=== PATIENT | female | born 1965 | race American Indian/Alaskan Native ===

== ENCOUNTER 2019-06-11 14:55 | Emergency (ER) | payer MEDICARE, MEDICAID ==
[~2019-06-11] VITALS: Ht 167.6 cm; Wt 84.8 kg
[~2019-06-11 14:55] MED LIST: [UNRECOGNIZED DRUG - OTHER]
[2019-06-11] MEDS ORDERED: HYDROCODONE/APAP 10-325 MG TABLET PO ONE (15:30)
--- NOTE | 2019-06-11 15:35 | NUR ---
patient was seen by . DC, rx (including precautions) AND FOLLOW UP INSTRUCTIONS GIVEN AND EXPLAINED TO PATIENT WHO STATES SHE UNDERSTANDS ALL INSTRUCTIONS.
== END 2019-06-11 15:37 | disposition home or self-care (01) ==
LOC: ER 14:55
DX: S22.31XA Fracture of one rib, right side, initial encounter for closed fracture (principal); F31.9 Bipolar disorder, unspecified; Z88.1 Allergy status to other antibiotic agents; X58.XXXA Exposure to other specified factors, initial encounter; Y93.89 Activity, other specified; Y92.89 Other specified places as the place of occurrence of the external cause; Y99.8 Other external cause status
CPT/HCPCS: A4663

== ENCOUNTER 2019-06-18 16:40 | Emergency (ER) | payer MEDICARE, MEDICAID ==
[~2019-06-18] VITALS: Ht 167.6 cm; Wt 87.1 kg
--- NOTE | 2019-06-18 17:07 | NUR ---
ALICE CARRION AT BEDSIDE FOR MSE.
--- NOTE | 2019-06-18 17:12 | NUR ---
Patient discharged to home in stable conditon. Written and verbal after care instructions given. Patient verbalizes understanding of instructions. ALL BELONGINGS W/ PT. PT SELF-AMBULATED W/O DIFFICULTY.
[2019-06-18 17:13] VITALS: BP 106/82
== END 2019-06-18 17:13 | disposition home or self-care (01) ==
LOC: ER 16:40
DX: S22.31XA Fracture of one rib, right side, initial encounter for closed fracture (principal); F31.9 Bipolar disorder, unspecified; Z88.0 Allergy status to penicillin; Z88.1 Allergy status to other antibiotic agents; X58.XXXA Exposure to other specified factors, initial encounter; Y93.89 Activity, other specified; Y92.89 Other specified places as the place of occurrence of the external cause; Y99.8 Other external cause status
CPT/HCPCS: A4663

== ENCOUNTER 2021-10-14 18:21 | Emergency (ER) | payer OTHER, MEDICAID ==
[~2021-10-14] VITALS: Ht 167.6 cm; Wt 68.5 kg
--- NOTE | 2021-10-14 18:46 | NUR ---
PT WAS EVALUATED BY DR MORA.
[2021-10-14] MEDS ORDERED: ACETAMINOPHEN 325 MG TABLET ONE (19:36)
--- NOTE | 2021-10-14 19:40 | NUR ---
Patient given written and verbal discharge instructions. Patient verbalizes understanding of instructions. Patient is ambulatory with steady gait. Refuses offer of [facility] placement. Patient given list of available shelters in surrounding area. Steady gait, denies any pain/discomfort upon discharge.
[2021-10-14 19:41] VITALS: BP 118/79
[2021-10-14] MEDS ORDERED: ACETAMINOPHEN 325 MG TABLET PO ONE (19:45)
== END 2021-10-14 19:41 | disposition home or self-care (01) ==
LOC: ER 18:24
DX: R46.2 Strange and inexplicable behavior (principal); G89.29 Other chronic pain; Z20.822 Contact with and (suspected) exposure to COVID-19; Z59.02 Unsheltered homelessness; M19.90 Unspecified osteoarthritis, unspecified site
CPT/HCPCS: A4663